=== PATIENT | male | born 1950 | race Asian ===

== ENCOUNTER 2021-09-05 18:39 | Emergency (ER) | payer OTHER ==
[~2021-09-05] VITALS: Ht 170.2 cm; Wt 77.1 kg
[2021-09-05 19:30] LABS: PLATELET COUNT 257 K/uL (142-355)
[2021-09-05 20:23] LABS: POTASSIUM 4.2 mmol/L (3.6-5.2)
[2021-09-05 20:45] VITALS: BP 137/95; TEMP 98.5
[2021-09-05] MEDS ORDERED: LORA0.5T17 PO (21:32)
[2021-09-05] MEDS ORDERED: LIPITOR10 MG PO (21:33)
[2021-09-05] MEDS ORDERED: GABA300C2 PO (21:34)
[2021-09-05] MEDS ORDERED: LORA1TAB17 PO (21:36)
[2021-09-05] MEDS ORDERED: MEDR10TA4 PO (21:37)
[2021-09-05] MEDS ORDERED: PANTOPRAZOLE 40MG TA PO (21:38)
[2021-09-05] MEDS ORDERED: SERT100T PO (21:39)
[2021-09-05] MEDS ORDERED: RESTORIL7.5 MG PO ×2 (21:39→21:41)
[2021-09-05] MEDS ORDERED: TRAZODONE HYDR100 MG PO (21:41)
[2021-09-05] MEDS ORDERED: TRAZODONE HYDRO50 MG PO (21:42)
[2021-09-05] MEDS ORDERED: VALPROIC A250 MG/5 M PO ×2 (21:43→21:45)
[2021-09-05] MEDS ORDERED: AMANTADINE100 M1 PO (21:44)
[2021-09-05] MEDS ORDERED: SEROQUEL XR150 MG PO (21:46)
[2021-09-05] MEDS ORDERED: SEROQUEL200 MG PO (21:47)
[2021-09-05] MEDS ORDERED: CARB25TA29 PO (21:49)
[2021-09-05] MEDS ORDERED: HALO5INJ3 INJ (21:51)
[2021-09-05] MEDS ORDERED: POLY GLYCOL3350 M1 PO (21:52)
[2021-09-05] MEDS ORDERED: TYLENOL325 MG PO (21:53)
== END 2021-09-05 20:45 | disposition other institution (70) ==
LOC: EDBD 18:39 → ED 18:39
PROVIDERS: Emergency Medicine Emergency Medical Services
DX: F20.89 Other schizophrenia (principal); R46.89 Other symptoms and signs involving appearance and behavior; Z11.52 Encounter for screening for COVID-19; Z04.6 Encounter for general psychiatric examination, requested by authority
CPT/HCPCS: 36415; 80053; 81000; 85027; 87635; 93005; 99283; U0003

== ENCOUNTER 2021-10-16 00:41 | Emergency (ER) | payer OTHER ==
[~2021-10-16] VITALS: Ht 170.2 cm; Wt 78.0 kg
[~2021-10-16 00:41] MED LIST: AMANTADINE100 M1 PO; AMANTADINE100 MG PO; CARB25TA29 PO; CETI10TA PO; ESCI10TA PO; GABA300C2 PO; HALO5INJ3 INJ; HALO5TAB10 PO; LIPITOR10 MG PO; LORA0.5T17 PO; LORA1TAB17 PO; MEDR10TA4 PO; MEDROXYPR AC10 MG PO; MELATONIN MAXIMU5 MG PO; MIRTAZAPINE7.5 MG PO; PANTOPRAZOLE 40MG TA PO; POLY GLYCOL3350 M1 PO; QUET25TA2 PO; QUET300T PO; RESTORIL7.5 MG PO; SEROQUEL XR150 MG PO; SEROQUEL200 MG PO; SERT100T PO; TRAZODONE HYDR100 MG PO; TRAZODONE HYDRO50 MG PO; TYLENOL325 MG PO; VALPROIC A250 MG/5 M PO
[2021-10-16 01:07] LABS: PLATELET COUNT 182 K/uL (142-355)
[2021-10-16 01:21] LABS: POTASSIUM 3.8 mmol/L (3.6-5.2)
[2021-10-16 01:40] VITALS: BP 148/75; TEMP 98.4
[2021-10-16] MEDS ORDERED: QUETIAPINE100 MG PO (08:29)
[2021-10-16] MEDS ORDERED: QUETIAPINE200 MG PO (08:30)
[2021-10-16] MEDS ORDERED: HALO5INJ3 IM (08:38)
== END 2021-10-16 01:40 | disposition still patient (30) ==
LOC: ED 00:41
PROVIDERS: Hospitalist
DX: F20.89 Other schizophrenia (principal); R44.2 Other hallucinations; F03.90 Unspecified dementia, unspecified severity, without behavioral disturbance, psychotic disturbance, mood disturbance, and anxiety; Z11.52 Encounter for screening for COVID-19; Z04.6 Encounter for general psychiatric examination, requested by authority
CPT/HCPCS: 36415; 80053; 80164; 81000; 85027; 87635; 93005; 99283; U0003

== ENCOUNTER 2021-12-31 19:19 | Emergency (ER) | payer OTHER ==
[~2021-12-31] VITALS: Ht 175.3 cm; Wt 79.4 kg
[~2021-12-31 19:19] MED LIST changes: +HALO50IN4 IM; +HALO5INJ3 IM; +QUET100T2 PO; +QUETIAPINE100 MG PO; +QUETIAPINE200 MG PO; +VALPROIC ACID10 ML PO
[2021-12-31 19:49] LABS: PLATELET COUNT 212 K/uL (142-355)
[2021-12-31 19:57] LABS: POTASSIUM 3.6 mmol/L (3.6-5.2)
[2021-12-31 20:32] VITALS: BP 155/77; TEMP 98.7
[2022-01-01] MEDS ORDERED: AMBIEN PO (14:03)
[2022-01-01] MEDS ORDERED: LIPITOR40 MG PO (14:04)
[2022-01-01] MEDS ORDERED: FAMOTIDINE10 MG PO (14:05)
[2022-01-01] MEDS ORDERED: FLUOXETINE10 MG PO (14:07)
[2022-01-01] MEDS ORDERED: FLUOXETINE20 MG PO (14:08)
[2022-01-01] MEDS ORDERED: LANTUS100 UNIT/M SC (14:10)
[2022-01-01] MEDS ORDERED: AMLODIPINE BESYLATE PO (14:10)
[2022-01-01] MEDS ORDERED: NEOMYCIN500 MG PO (14:11)
[2022-01-01] MEDS ORDERED: QUETIAPINE25 MG PO (14:17)
[2022-01-01] MEDS ORDERED: NOVOLOG100 UNIT/M SC (14:20)
[2022-01-01] MEDS ORDERED: IBUPROFEN200 M1 PO (14:22)
[2022-01-01] MEDS ORDERED: LIPITOR10 MG PO (14:40)
[2022-01-01] MEDS ORDERED: HALO50IN4 IM (14:42)
[2022-01-01] MEDS ORDERED: PANTOPRAZOLE 40MG TA PO (14:43)
[2022-01-01] MEDS ORDERED: CARB25TA29 PO (14:44)
[2022-01-01] MEDS ORDERED: HALO2CON2 PO (14:45)
[2022-01-01] MEDS ORDERED: VALP250S3 PO (14:46)
[2022-01-01] MEDS ORDERED: AMANTADINE HYD PO (14:47)
[2022-01-01] MEDS ORDERED: GABA300C2 PO (14:48)
[2022-01-01] MEDS ORDERED: TYLENOL325 MG PO (14:48)
[2022-01-01] MEDS ORDERED: DIPH50IN IM (14:50)
[2022-01-01] MEDS ORDERED: HALO5INJ3 IM (14:51)
[2022-01-01] MEDS ORDERED: POLYETHYLE17 GM/SCO1 PO (14:52)
== END 2021-12-31 20:32 | disposition still patient (30) ==
LOC: ED 19:19
PROVIDERS: Hospitalist
DX: F20.89 Other schizophrenia (principal); R46.89 Other symptoms and signs involving appearance and behavior; Z11.52 Encounter for screening for COVID-19; Z04.6 Encounter for general psychiatric examination, requested by authority
CPT/HCPCS: 36415; 80053; 85027; 87635; 93005; 99283; U0003

== ENCOUNTER 2022-11-05 21:56 | Emergency (ER) | payer OTHER ==
[~2022-11-05] VITALS: Ht 175.3 cm; Wt 78.0 kg
[~2022-11-05 21:56] MED LIST changes: +ACET-206 PO; +AMANTADINE HYD PO; +AMBIEN PO; +AMLODIPINE BESYLATE PO; +ATOR20TA2 PO; +DIPH50IN IM; +DIVA125C PO; +FAMOTIDINE10 MG PO; +FLUOXETINE10 MG PO; +FLUOXETINE20 MG PO; +HALO2CON2 PO; +IBUPROFEN200 M1 PO; +LANTUS100 UNIT/M SC; +LIPITOR20 MG PO; +LIPITOR40 MG PO; +MAGNSUS68 PO; +MIRALAX 17GM PAK PO; +NEOMYCIN500 MG PO; +NICOTINE T14 MG/241 TD; +NOVOLOG100 UNIT/M SC; +OLANZAPINE10 MG PO; +PERPHENAZINE4 MG PO; +POLYETHYLE17 GM/SCO1 PO; +QUETIAPINE25 MG PO; +RISP1TAB PO; +TEMA15CA19 PO; +VALP250S3 PO
[2022-11-05 22:00] VITALS: BP 136/96; TEMP 98.7
[2022-11-06] MEDS ORDERED: GRALISE600 MG PO (08:52)
[2022-11-06] MEDS ORDERED: TROCHIBASE PO (08:54)
[2022-11-06] MEDS ORDERED: TEMA15CA19 PO (08:56)
[2022-11-06] MEDS ORDERED: ZYPREXA ZYDI10 MG PO (09:05)
[2022-11-06] MEDS ORDERED: GABA300C2 PO (09:05)
[2022-11-06] MEDS ORDERED: VALP250S3 PO (09:06)
[2022-11-06] MEDS ORDERED: HALO50IN4 IM (09:07)
[2022-11-06] MEDS ORDERED: [UNRECOGNIZED DRUG - OTHER] PO (09:09)
== END 2022-11-06 00:40 | disposition still patient (30) ==
LOC: ED 21:56
DX: F20.89 Other schizophrenia (principal); F31.89 Other bipolar disorder; R45.1 Restlessness and agitation; I10 Essential (primary) hypertension; Z11.52 Encounter for screening for COVID-19; Z04.6 Encounter for general psychiatric examination, requested by authority
CPT/HCPCS: 87635; 93005; 96372; 99283; J3486; U0003

== ENCOUNTER 2023-02-26 20:19 | Emergency (ER) | payer OTHER ==
[~2023-02-26] VITALS: Ht 175.3 cm; Wt 74.8 kg
[~2023-02-26 20:19] MED LIST changes: +GRALISE600 MG PO; +OLAN10INJ IM; +OLAN10INJ INJ; +OLANZAPINE5 MG PO; +TROCHIBASE PO; +ZYPREXA ZYDI10 MG PO; +[UNRECOGNIZED DRUG - OTHER] PO
[2023-02-26 21:23] LABS: PLATELET COUNT 162 K/uL (142-355)
[2023-02-26 21:26] LABS: POTASSIUM 3.7 mmol/L (3.6-5.2)
[2023-02-26 21:46] VITALS: BP 138/84; TEMP 98.6
[2023-02-27] MEDS ORDERED: ZYPREXA ZYDI10 MG PO (08:28)
[2023-02-27] MEDS ORDERED: VALPROIC A250 MG/5 M PO (08:30)
[2023-02-27] MEDS ORDERED: HALO5INJ3 IM (08:36)
[2023-02-27] MEDS ORDERED: MILK OF MA400 MG/5 M PO (08:38)
[2023-02-27] MEDS ORDERED: MIRALAX17 GM/SCOO PO (08:40)
[2023-02-27] MEDS ORDERED: OLANZAPINE10 M1 IM (08:42)
== END 2023-02-26 21:46 | disposition still patient (30) ==
LOC: ED 20:19
PROVIDERS: Internal Medicine
DX: F03.911 Unspecified dementia, unspecified severity, with agitation (principal); Z11.52 Encounter for screening for COVID-19; Z04.6 Encounter for general psychiatric examination, requested by authority
CPT/HCPCS: 36415; 80053; 81002; 85027; 87635; 93005; 99283; U0003